=== PATIENT | female | born 1995 | race Caucasian/White ===

== ENCOUNTER 2017-12-07 16:57 | Emergency (ER) | payer OTHER ==
[~2017-12-07] VITALS: Ht 175.3 cm; Wt 133.0 kg
[2017-12-07 17:00] VITALS: BP 130/79; PULSE 97; RESP 16; TEMP 99; O2SAT 97
--- NOTE | 2017-12-07 17:20 | PD ---
HPI Chief Complaint: Abdominal Pain Time Seen by Provider: 17:08 Travel History International Travel<30 days: No Contact w/Intl Traveler<30days: No Traveled to known affect area: No History of Present Illness HPI The patient was seen and examined in the presence of the nurse. This patient complains of left-sided pelvic pain. Severity is mild to moderate. Duration is 6 hours. No vaginal discharge or fever. No diarrhea or rectal bleeding. 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 She has an IUD, does not think she is . No vomiting or nausea. PFSH Past Medical History ?: Not LMP: 2 WEEKS Social History Alcohol Use: No Tobacco Use: No Substance Use: No Allergies-Medications (Allergen,Severity, Reaction): Coded Allergies: No Known Allergies (Unverified , 12/07/17) Review of Systems General / Constitutional: No: Fever Eyes: No: Visual changes HENT: No: Headaches Cardiovascular: No: Chest Pain or Discomfort Respiratory: No: Shortness of Breath Gastrointestinal: Positive: Abdominal Pain Genitourinary: Positive: Pelvic Pain, No: Dysuria Musculoskeletal: No: Pain Skin: No Rash Neurologic: No: Weakness Psychiatric: No: Depression Endocrine: No: Polydipsia Hematologic/Lymphatic: No: Easy Bruising Physical Exam Narrative GENERAL: Well-nourished, well-developed patient in no apparent distress. SKIN: Focused skin assessment reveals no rash and nodules. Skin is Warm and dry. HEAD: Atraumatic. Normocephalic. EYES: Pupils equal and round. No scleral icterus. No injection or drainage. ENT: No nasal bleeding or discharge. Mucous membranes pink and moist. NECK: Trachea midline. No JVD. CARDIOVASCULAR: Regular rate and rhythm. No murmur appreciated. RESPIRATORY: No accessory muscle use. Clear to auscultation. Breath sounds equal bilaterally. GASTROINTESTINAL: Abdomen soft, mild left lower quadrant tenderness without rebound or guarding, nondistended. Hepatic and splenic margins not palpable. MUSCULOSKELETAL: No obvious deformities. No clubbing. No cyanosis. No edema. NEUROLOGICAL: Awake and alert. No obvious cranial nerve deficits. Motor grossly within normal limits. Normal speech. PSYCHIATRIC: Appropriate mood and affect; insight and judgment normal. Data Data Last Documented VS Vital Signs Date Time Temp Pulse Resp B/P (MAP) Pulse Ox O2 Delivery O2 Flow Rate FiO2 12/07/17 17:00 99.0 97 16 130/79 (96) 97 Orders Orders Ed Urine Pregnancytest Poc (12/07/17 17:15) MDM Medical Decision Making Medical Screen Exam Complete: Yes Emergency Medical Condition: Yes Medical Record Reviewed: Yes Differential Diagnosis Ovarian cystic disease, ectopic, colitis Narrative Course I have reviewed the patient's electronic medical record. We will make sure she is not using urine test Abdomen is soft and benign Presentation is mild. I do not think extensive workup is indicated. She feels relatively well I wrote her some as needed pain medication and recommend [employer] follow-up Diagnosis Primary Impression: Abdominal pain Qualified Codes: R10.32 - Left lower quadrant pain Additional Instructions: The patient was advised to follow up with their physician and return if they worsen. The patient was warned about potential sedation for the medications they will receive on prescription. Disposition: 01 DISCHARGE HOME Condition: Stable Corky Adams MD December 07, 2017 17:20
[2017-12-07] MEDS ORDERED: TRAM50TA PO (17:37)
== END 2017-12-07 17:55 | disposition home or self-care (01) ==
LOC: PHED 16:57
DX: R10.2 Pelvic and perineal pain (principal)
CPT/HCPCS: 84703; 99283